=== PATIENT | male | born 1995 | race Hispanic/Latino ===

== ENCOUNTER 2017-06-23 14:48 | Emergency (ER) | payer OTHER ==
[~2017-06-23] VITALS: Ht 185.4 cm; Wt 102.1 kg
[2017-06-23] MEDS ORDERED: TETANUS/DIPHTHERIA TOX ADULT 0.5 ML SYR IM ONE (15:00)
[2017-06-23 15:31] VITALS: BP 140/57
== END 2017-06-23 15:48 | disposition home or self-care (01) ==
LOC: ER 14:48
DX: S61.102A Unspecified open wound of left thumb with damage to nail, initial encounter (principal); F32.9 Major depressive disorder, single episode, unspecified; W22.8XXA Striking against or struck by other objects, initial encounter; Y99.0 Civilian activity done for income or pay
CPT/HCPCS: 90714; 99283